=== PATIENT | male | born 1995 | race Caucasian/White ===

== ENCOUNTER 2017-11-17 12:09 | Inpatient (IN) | payer MEDICAID ==
[2017-11-17] MEDS: LACTATED RINGER S IV (14:09)
[2017-11-17 14:11] LABS: ADD MAN DIFF? NO
[2017-11-17 14:19] LABS: BASOPHILS % 0.5 % (0.0-2.0); EOSINOPHILS % 0.4 % (0.0-7.0); HEMOGLOBIN 13.6 g/dl (14.0-18.0); LYMPHOCYTES # 1.3 10^3/ul (0.8-2.9); LYMPHOCYTES % 16.8 % (15.0-51.0); MEAN CORPUSCULAR HEMOGLOBIN 32.6 pg (29.0-33.0); MEAN CORPUSCULAR HGB CONC 33.2 g/dl (32.0-37.0); MEAN CORPUSCULAR VOLUME 98.3 fl (82.0-101.0); MEAN PLATELET VOLUME 10.4 fl (7.4-10.4); MONOCYTE # 0.5 10^3/ul (0.3-0.9); MONOCYTES % 6.2 % (0.0-11.0); NEUTROPHIL # 5.7 10^3/ul (1.6-7.5); NEUTROPHILS % 75.7 % (39.0-77.0); PLATELET COUNT 117 10^3/UL (140-415); POSITIVE DIFF @See below; RED BLOOD COUNT 4.17 10^6/ul (4.70-6.10); RED CELL DISTRIBUTION WIDTH 12.8 % (11.5-14.5)
[2017-11-17 14:19] LABS: WHITE BLOOD COUNT 7.5 10^3/ul (4.8-10.8)
[2017-11-17 14:23] LABS: AADO2 Arterial 129.4 mmHg (7.0-24.0); Allen Test ACCEPTAB; Arterial Base Excess 3.8 mmol/L (-3.0-3); Arterial Blood Gas Oxygen Sat 97.6 mmHG (95.0-98.0); Arterial COHb 0.3 % (0.0-3.0); Arterial Fraction of Oxyhgb 97.2 % (93.0-99.0); Arterial HCO3 28.1 mmol/L (22.0-26.0); Arterial MetHb 0.1 % (0.0-1.5); Arterial pCO2 41.1 mmhg (35-45); MODE VENT - AC; Site Right Radial
[2017-11-17 14:32] LABS: INR 1.29; PROTIME 16.3 Sec (11.9-14.9); PT RATIO 1.3
[2017-11-17 14:33] LABS: PARTIAL THROMBOPLASTIN TIME 35.2 Sec (25.0-35.0)
[2017-11-17] MEDS: LORAZEPAM 2 MG INJ IM (15:29)
[2017-11-17 15:31] LABS: ALANINE AMINOTRANSFERASE 364 IU/L (13-69); ALBUMIN 3.9 g/dl (3.3-4.9); ALBUMIN/GLOBULIN RATIO 0.97; ALKALINE PHOSPHATASE 505 IU/L (42-121); ANION GAP 20 (8-16); ASPARTATE AMINO TRANSFERASE 240 IU/L (15-46); BILIRUBIN,INDIRECT 0.2 mg/dl (0-1.1); BILIRUBIN,TOTAL 0.2 mg/dl (0.2-1.3); BLOOD UREA NITROGEN 19 mg/dl (7-20); CARBON DIOXIDE 26 mmol/L (21-31); CHLORIDE 104 mmol/L (97-110); CREATININE 0.53 mg/dl (0.61-1.24); GLUCOSE 79 mg/dl (70-220); POTASSIUM 4.7 mmol/L (3.5-5.1); SODIUM 145 mmol/L (135-144); TOTAL PROTEIN 7.9 g/dl (6.1-8.1)
[2017-11-17 15:35] LABS: LACTIC ACID 9.1 mmol/L (0.5-2.0)
[2017-11-17 15:43] LABS: TROPONIN-I < 0.012 ng/ml (0.00-0.12)
[2017-11-17 16:17] LABS: URINE BLOOD (Dip) POC Negative (NEGATIVE); URINE GLUCOSE (Dip) POC Negative (NEGATIVE); URINE KETONES (Dip) POC Negative (NEGATIVE); URINE LEUKOCYTE EST (Dip) POC Negative (NEGATIVE); URINE NITRITE (Dip) POC Negative (NEGATIVE); URINE TOTAL PROTEIN POC Trace (NEGATIVE)
[2017-11-17] MEDS ORDERED: LEVETIRACETAM (100 MG/ML) 5ML CUP PEG (16:30)
[2017-11-17] MEDS ORDERED: VANCOMYCIN IV PER PHARMACY XX (16:30)
[2017-11-17] MEDS ORDERED: ALBUTEROL 0.083% (NEB) 2.5 MG/3 ML AMP NEB (16:30)
[2017-11-17] MEDS ORDERED: NON-FORMULARY/PATIENT OWN MED (Lacosamide (Vimpat) 100 MG) IV* (16:30)
[2017-11-17] MEDS ORDERED: ONDANSETRON (1 MG/1.25 ML PO SYG) PEG (16:30)
[2017-11-17] MEDS ORDERED: SOD CHLORIDE 0.9% 1,200 ML IV (16:30)
[2017-11-17] MEDS ORDERED: GENTAMICIN IV PER PHARMACY XX (16:30)
[2017-11-17] MEDS ORDERED: ACETAMINOPHEN 650MG/20.3ML CUP PO (16:30)
[2017-11-17 16:44] LABS: ADD UMIC YES; UR ASCORBIC ACID 40 mg/dL (NEGATIVE); UR BILIRUBIN (Dip) NEGATIVE (NEGATIVE); UR BLOOD (Dip) NEGATIVE (NEGATIVE); UR CLARITY CLEAR (CLEAR); UR COLOR YELLOW (YELLOW); UR GLUCOSE (Dip) 1+ mg/dL (NEGATIVE); UR KETONES (Dip) NEGATIVE (NEGATIVE); UR LEUKOCYTE ESTERASE (Dip) NEGATIVE Leu/ul (NEGATIVE); UR NITRITE (Dip) NEGATIVE (NEGATIVE); UR RBC 0 /HPF (0-5); UR SPECIFIC GRAVITY (Dip) 1.029 (1.003-1.030); UR TOTAL PROTEIN (Dip) 1+ mg/dl (NEGATIVE); UR UROBILINOGEN (Dip) 2+ mg/dL (NEGATIVE); UR WBC 0 /HPF (0-5)
[2017-11-17] MEDS: DEXTROSE 5%-0.45% NACL 1,000 ML IV (17:30)
[2017-11-17] MEDS: SOD CHLORIDE 0.9% 100 ML (17:40)
[2017-11-17] MEDS: MEROPENEM 500MG/50 ML (PMX) 50 ML IVPB (17:52)
[2017-11-17] MEDS: LIDOCAINE 1% (MPF) 5 ML VIAL SC (17:52)
[2017-11-17] MEDS: VANCOMYCIN 1 GM (PMX) 250 ML IVPB (18:50)
[2017-11-17 20:48] LABS: LACTIC ACID 1.8 mmol/L (0.5-2.0)
[2017-11-17] MEDS: PANTOPRAZOLE 40 MG INJ IV (21:57)
[2017-11-17] MEDS: LEVETIRACETAM 500 MG (PMX) 100 ML IVPB (22:00)
[2017-11-17] MEDS: AZTREONAM 2 GM in SOD CHLORIDE 0.9% 100 ML IVPB (22:15)
[2017-11-17 22:22] LABS: LACTIC ACID 1.2 mmol/L (0.5-2.0)
[2017-11-18 00:51] LABS: LACTIC ACID 1.4 mmol/L (0.5-2.0)
[2017-11-18] MEDS: SALINE 0.65% 45 ML NAS SPRAY NASAL ×2 (05:03→08:17)
[2017-11-18] MEDS: GENTAMICIN 130 MG in DEXTROSE 5% 100 ML IVPB (05:03)
[2017-11-18 05:09] LABS: ADD MAN DIFF? NO
[2017-11-18 05:10] LABS: WHITE BLOOD COUNT 7.8 10^3/ul (4.8-10.8)
[2017-11-18 05:10] LABS: BASOPHILS % 0.3 % (0.0-2.0); EOSINOPHILS # 0.1 10^3/ul (0.0-0.5); EOSINOPHILS % 0.8 % (0.0-7.0); HEMATOCRIT 35.3 % (42.0-52.0); HEMOGLOBIN 12.1 g/dl (14.0-18.0); LYMPHOCYTES # 1.4 10^3/ul (0.8-2.9); LYMPHOCYTES % 17.3 % (15.0-51.0); MEAN CORPUSCULAR HEMOGLOBIN 32.8 pg (29.0-33.0); MEAN CORPUSCULAR HGB CONC 34.3 g/dl (32.0-37.0); MEAN CORPUSCULAR VOLUME 95.7 fl (82.0-101.0); MONOCYTE # 0.6 10^3/ul (0.3-0.9); MONOCYTES % 7.1 % (0.0-11.0); NEUTROPHIL # 5.8 10^3/ul (1.6-7.5); NEUTROPHILS % 74.2 % (39.0-77.0); PLATELET COUNT 114 10^3/UL (140-415); POSITIVE DIFF @See below; RED BLOOD COUNT 3.69 10^6/ul (4.70-6.10); RED CELL DISTRIBUTION WIDTH 12.7 % (11.5-14.5)
[2017-11-18 05:36] LABS: LACTIC ACID 1.8 mmol/L (0.5-2.0)
[2017-11-18 05:52] LABS: ALANINE AMINOTRANSFERASE 367 IU/L (13-69); ALBUMIN/GLOBULIN RATIO 0.78; ALKALINE PHOSPHATASE 452 IU/L (42-121); ANION GAP 15 (8-16); ASPARTATE AMINO TRANSFERASE 275 IU/L (15-46); BILIRUBIN,INDIRECT 0.4 mg/dl (0-1.1); BILIRUBIN,TOTAL 0.4 mg/dl (0.2-1.3); BLOOD UREA NITROGEN 15 mg/dl (7-20); CALCIUM 8.3 mg/dl (8.4-10.2); CARBON DIOXIDE 26 mmol/L (21-31); CHLORIDE 103 mmol/L (97-110); CREATININE 0.51 mg/dl (0.61-1.24); GLUCOSE 178 mg/dl (70-220); MAGNESIUM 1.4 mg/dl (1.7-2.5); POTASSIUM 3.8 mmol/L (3.5-5.1); SODIUM 140 mmol/L (135-144); TOTAL PROTEIN 6.8 g/dl (6.1-8.1)
[2017-11-18] MEDS: PANTOPRAZOLE 40 MG INJ IV ×2 (06:26→16:51)
[2017-11-18] MEDS: AZTREONAM 2 GM in SOD CHLORIDE 0.9% 100 ML IVPB ×2 (06:56→14:37)
[2017-11-18] MEDS: MAGNESIUM SULFATE 2 GM/50 ML 50 ML IVPB (08:16)
[2017-11-18] MEDS: VANCOMYCIN 500MG/NS (PMX) 100 ML IVPB (08:17)
[2017-11-18] MEDS: LEVETIRACETAM 500 MG (PMX) 100 ML IVPB ×2 (08:17→20:38)
[2017-11-18] MEDS ORDERED: GENTAMICIN 70 MG in SOD CHLORIDE 0.9% 50 ML IVPB (09:00)
[2017-11-18] MEDS ORDERED: ENOXAPARIN 40 MG/0.4 ML SYG SC (09:00)
[2017-11-18] MEDS: DEXTROSE 5%-0.45% NACL 1,000 ML IV ×2 (10:10→20:55)
[2017-11-18] MEDS: GENTAMICIN 60 MG in SOD CHLORIDE 0.9% 50 ML IVPB (12:39)
[2017-11-18] MEDS ORDERED: [UNRECOGNIZED DRUG - REMARK] XX (13:00)
[2017-11-18] MEDS: CIPROFLOXACIN 400MG/D5W 200 ML IVPB (20:48)
[2017-11-18] MEDS: LORAZEPAM 2 MG INJ IV (22:10)
[2017-11-19 05:47] LABS: ADD MAN DIFF? NO
[2017-11-19] MEDS: PANTOPRAZOLE 40 MG INJ IV ×2 (05:48→18:35)
[2017-11-19 05:54] LABS: BASOPHILS % 0.6 % (0.0-2.0); EOSINOPHILS # 0.2 10^3/ul (0.0-0.5); EOSINOPHILS % 3.1 % (0.0-7.0); HEMATOCRIT 35.8 % (42.0-52.0); HEMOGLOBIN 12.3 g/dl (14.0-18.0); LYMPHOCYTES # 1.2 10^3/ul (0.8-2.9); LYMPHOCYTES % 18.2 % (15.0-51.0); MEAN CORPUSCULAR HEMOGLOBIN 32.4 pg (29.0-33.0); MEAN CORPUSCULAR HGB CONC 34.4 g/dl (32.0-37.0); MEAN CORPUSCULAR VOLUME 94.2 fl (82.0-101.0); MEAN PLATELET VOLUME 10.5 fl (7.4-10.4); MONOCYTE # 0.5 10^3/ul (0.3-0.9); MONOCYTES % 7.7 % (0.0-11.0); NEUTROPHIL # 4.6 10^3/ul (1.6-7.5); NEUTROPHILS % 70.1 % (39.0-77.0); PLATELET COUNT 127 10^3/UL (140-415); POSITIVE DIFF @See below; RED CELL DISTRIBUTION WIDTH 12.7 % (11.5-14.5)
[2017-11-19 05:54] LABS: WHITE BLOOD COUNT 6.5 10^3/ul (4.8-10.8)
[2017-11-19 06:10] LABS: INR 1.31; PROTIME 16.5 Sec (11.9-14.9); PT RATIO 1.3
[2017-11-19] MEDS ORDERED: ATROPINE 1 MG/10 ML SYRINGE IV (06:30)
[2017-11-19] MEDS ORDERED: OXYCODONE/ACETAMINOPHEN (5/325) TAB PO ×2 (06:30)
[2017-11-19] MEDS ORDERED: hydrALAzine 20 MG INJ IV (06:30)
[2017-11-19] MEDS ORDERED: MEPERIDINE 25 MG INJ IV (06:30)
[2017-11-19] MEDS ORDERED: DIPHENHYDRAMINE 50 MG INJ IV (06:30)
[2017-11-19] MEDS ORDERED: ONDANSETRON 4 MG INJ IV (06:30)
[2017-11-19] MEDS ORDERED: HYDROmorphONE (0.2 MG/ML) 10ML SYG IV ×3 (06:30)
[2017-11-19] MEDS ORDERED: MIDAZOLAM 1 MG/ML 2 ML INJ IV (06:30)
[2017-11-19] MEDS ORDERED: morphine (1 MG/ML) 10ML SYRINGE IV ×3 (06:30)
[2017-11-19] MEDS ORDERED: EPHEDrine SULFATE 50 MG/5 ML SYG IV (06:30)
[2017-11-19] MEDS ORDERED: FENTAnyl 50 MCG/ML VIAL IV ×2 (06:30)
[2017-11-19] MEDS ORDERED: LABETALOL HCL 20MG INJ IV (06:30)
[2017-11-19 06:51] LABS: ALANINE AMINOTRANSFERASE 325 IU/L (13-69); ALBUMIN 3.2 g/dl (3.3-4.9); ALBUMIN/GLOBULIN RATIO 0.84; ALKALINE PHOSPHATASE 483 IU/L (42-121); ANION GAP 12 (8-16); ASPARTATE AMINO TRANSFERASE 170 IU/L (15-46); BILIRUBIN,INDIRECT 0.2 mg/dl (0-1.1); BILIRUBIN,TOTAL 0.2 mg/dl (0.2-1.3); BLOOD UREA NITROGEN 10 mg/dl (7-20); CALCIUM 8.6 mg/dl (8.4-10.2); CARBON DIOXIDE 29 mmol/L (21-31); CHLORIDE 103 mmol/L (97-110); CREATININE 0.51 mg/dl (0.61-1.24); GLUCOSE 74 mg/dl (70-220); MAGNESIUM 1.6 mg/dl (1.7-2.5); POTASSIUM 3.7 mmol/L (3.5-5.1); SODIUM 140 mmol/L (135-144)
[2017-11-19] MEDS: CIPROFLOXACIN 400MG/D5W 200 ML IVPB (08:57)
[2017-11-19] MEDS: LEVETIRACETAM 500 MG (PMX) 100 ML IVPB ×2 (08:57→21:29)
[2017-11-19] MEDS: SALINE 0.65% 45 ML NAS SPRAY NASAL (08:58)
[2017-11-19] MEDS: SOD CHLORIDE 0.9% 500 ML IV (09:33)
[2017-11-19] MEDS: DEXTROSE 5%-0.45% NACL 1,000 ML IV ×2 (09:33→20:19)
[2017-11-19] MEDS: MAGNESIUM SULFATE 2 GM/50 ML 50 ML IVPB (12:20)
[2017-11-19] MEDS ORDERED: PROPOFOL 20 ML (12:51)
[2017-11-19] MEDS ORDERED: GLYCOPYRROLATE 0.4 MG INJ (12:51)
[2017-11-19] MEDS ORDERED: NEOSTIGMINE 3 MG/3 ML SYRINGE (12:51)
[2017-11-19] MEDS ORDERED: FENTAnyl 50 MCG/ML VIAL (12:51)
[2017-11-19] MEDS ORDERED: ROCURONIUM 50 MG INJ (12:51)
[2017-11-19] MEDS ORDERED: LIDOCAINE 2% (SDV) 5 ML INJ (12:51)
[2017-11-19] MEDS ORDERED: MIDAZOLAM 1 MG/ML 2 ML INJ (12:51)
[2017-11-19] MEDS: HEPARIN 1000 UNITS/ML 10 ML INJ (14:18)
[2017-11-19] MEDS: LIDOCAINE 1% (MPF) 30 ML INJ (14:18)
[2017-11-19] MEDS ORDERED: HEPARIN 1000 UNITS/ML 10 ML INJ (14:40)
[2017-11-19] MEDS: LINEZOLID 600 MG/D5W (PMX) 300 ML IVPB ×2 (15:57→21:29)
[2017-11-19] MEDS: LORAZEPAM 2 MG INJ IV (23:07)
[2017-11-20] MEDS: DEXTROSE 5%-0.45% NACL 1,000 ML IV ×2 (02:10→13:07)
[2017-11-20 05:52] LABS: ADD MAN DIFF? NO
[2017-11-20 06:02] LABS: BASOPHIL # 0.1 10^3/ul (0.0-0.1); BASOPHILS % 0.7 % (0.0-2.0); EOSINOPHILS # 0.3 10^3/ul (0.0-0.5); HEMATOCRIT 35.5 % (42.0-52.0); HEMOGLOBIN 12.1 g/dl (14.0-18.0); LYMPHOCYTES # 1.6 10^3/ul (0.8-2.9); LYMPHOCYTES % 23.9 % (15.0-51.0); MEAN CORPUSCULAR HEMOGLOBIN 32.5 pg (29.0-33.0); MEAN CORPUSCULAR HGB CONC 34.1 g/dl (32.0-37.0); MEAN CORPUSCULAR VOLUME 95.4 fl (82.0-101.0); MEAN PLATELET VOLUME 10.2 fl (7.4-10.4); MONOCYTE # 0.5 10^3/ul (0.3-0.9); MONOCYTES % 6.8 % (0.0-11.0); NEUTROPHIL # 4.4 10^3/ul (1.6-7.5); NEUTROPHILS % 64.5 % (39.0-77.0); PLATELET COUNT 136 10^3/UL (140-415); POSITIVE DIFF @See below; RED BLOOD COUNT 3.72 10^6/ul (4.70-6.10); RED CELL DISTRIBUTION WIDTH 12.6 % (11.5-14.5)
[2017-11-20 06:02] LABS: WHITE BLOOD COUNT 6.8 10^3/ul (4.8-10.8)
[2017-11-20] MEDS: PANTOPRAZOLE 40 MG INJ IV ×2 (06:07→18:14)
[2017-11-20 06:35] LABS: ALANINE AMINOTRANSFERASE 235 IU/L (13-69); ALBUMIN 2.9 g/dl (3.3-4.9); ALBUMIN/GLOBULIN RATIO 0.82; ALKALINE PHOSPHATASE 410 IU/L (42-121); ANION GAP 12 (8-16); ASPARTATE AMINO TRANSFERASE 114 IU/L (15-46); BILIRUBIN,INDIRECT 0.1 mg/dl (0-1.1); BILIRUBIN,TOTAL 0.1 mg/dl (0.2-1.3); BLOOD UREA NITROGEN 5 mg/dl (7-20); CALCIUM 8.1 mg/dl (8.4-10.2); CARBON DIOXIDE 27 mmol/L (21-31); CHLORIDE 105 mmol/L (97-110); CREATININE 0.53 mg/dl (0.61-1.24); GLUCOSE 83 mg/dl (70-220); MAGNESIUM 1.8 mg/dl (1.7-2.5); POTASSIUM 3.9 mmol/L (3.5-5.1); SODIUM 140 mmol/L (135-144); TOTAL PROTEIN 6.4 g/dl (6.1-8.1)
[2017-11-20] MEDS: LEVETIRACETAM 500 MG (PMX) 100 ML IVPB ×2 (10:10→21:02)
[2017-11-20] MEDS: LINEZOLID 600 MG/D5W (PMX) 300 ML IVPB ×2 (10:11→21:02)
[2017-11-20] MEDS: SALINE 0.65% 45 ML NAS SPRAY NASAL (10:11)
[2017-11-20] MEDS: TPN 1,000 ML IV ×2 (11:37→17:30)
[2017-11-20] MEDS: ACCU-CHEK XX ×3 (15:20→21:11)
[2017-11-20 15:26] LABS: ALANINE AMINOTRANSFERASE 229 IU/L (13-69); ALBUMIN/GLOBULIN RATIO 0.83; ALKALINE PHOSPHATASE 422 IU/L (42-121); ANION GAP 10 (8-16); ASPARTATE AMINO TRANSFERASE 99 IU/L (15-46); BILIRUBIN,INDIRECT 0.1 mg/dl (0-1.1); BILIRUBIN,TOTAL 0.1 mg/dl (0.2-1.3); BLOOD UREA NITROGEN 4 mg/dl (7-20); CALCIUM 8.2 mg/dl (8.4-10.2); CARBON DIOXIDE 28 mmol/L (21-31); CHLORIDE 104 mmol/L (97-110); CREATININE 0.54 mg/dl (0.61-1.24); GLUCOSE 77 mg/dl (70-220); MAGNESIUM 1.6 mg/dl (1.7-2.5); PHOSPHORUS 3.2 mg/dl (2.5-4.9); POTASSIUM 3.5 mmol/L (3.5-5.1); SODIUM 138 mmol/L (135-144); TOTAL PROTEIN 6.6 g/dl (6.1-8.1); TRIGLYCERIDES 65 mg/dl (0-149)
[2017-11-20 15:32] LABS: PREALBUMIN 11.2 mg/dl (17.6-36.0)
[2017-11-20] MEDS: FAT EMULSION 20% 250 ML IV (16:00)
[2017-11-20] MEDS: TOBRAMYCIN/0.25NS 300 MG/5 ML INHAL NEB (20:00)
[2017-11-21] MEDS: ACCU-CHEK XX ×4 (01:00→12:12)
[2017-11-21 06:03] LABS: ALANINE AMINOTRANSFERASE 203 IU/L (13-69); ALBUMIN 2.9 g/dl (3.3-4.9); ALBUMIN/GLOBULIN RATIO 0.78; ALKALINE PHOSPHATASE 359 IU/L (42-121); ANION GAP 13 (8-16); ASPARTATE AMINO TRANSFERASE 90 IU/L (15-46); BLOOD UREA NITROGEN 11 mg/dl (7-20); CALCIUM 8.5 mg/dl (8.4-10.2); CARBON DIOXIDE 33 mmol/L (21-31); CHLORIDE 104 mmol/L (97-110); CREATININE 0.57 mg/dl (0.61-1.24); GLUCOSE 90 mg/dl (70-220); MAGNESIUM 1.9 mg/dl (1.7-2.5); POTASSIUM 4.2 mmol/L (3.5-5.1); SODIUM 146 mmol/L (135-144); TOTAL PROTEIN 6.6 g/dl (6.1-8.1)
[2017-11-21 06:25] LABS: ANION GAP 13 (8-16); BLOOD UREA NITROGEN 11 mg/dl (7-20); CALCIUM 8.5 mg/dl (8.4-10.2); CARBON DIOXIDE 31 mmol/L (21-31); CHLORIDE 105 mmol/L (97-110); CREATININE 0.56 mg/dl (0.61-1.24); GLUCOSE 88 mg/dl (70-220); PHOSPHORUS 4.1 mg/dl (2.5-4.9); POTASSIUM 4.3 mmol/L (3.5-5.1); SODIUM 145 mmol/L (135-144)
[2017-11-21] MEDS: PANTOPRAZOLE 40 MG INJ IV (06:58)
[2017-11-21] MEDS: TPN 1,000 ML IV (08:42)
[2017-11-21] MEDS: SALINE 0.65% 45 ML NAS SPRAY NASAL (08:48)
[2017-11-21] MEDS: LINEZOLID 600 MG/D5W (PMX) 300 ML IVPB (08:49)
[2017-11-21] MEDS: LEVETIRACETAM 500 MG (PMX) 100 ML IVPB ×2 (09:41→12:13)
[2017-11-21] MEDS ORDERED: LORAZEPAM 2 MG INJ IV (10:00)
[2017-11-21] MEDS ORDERED: LEVETIRACETAM 1000 MG (PMX) 100 ML IVPB (21:00)
== END 2017-11-21 17:10 | DRG 870 ==
LOC: E/R 12:09 → ICU 16:52
PROC: 5A1955Z Respiratory Ventilation, Greater than 96 Consecutive Hours (ICD-10-PCS; principal; 2017-11-19 13:35)
PROC: 4A033R1 Measurement of Arterial Saturation, Peripheral, Percutaneous Approach (ICD-10-PCS; 2017-11-19 13:35)
PROC: 02PAX3Z Removal of Infusion Device from Heart, External Approach (ICD-10-PCS; 2017-11-19 13:35)
PROC: 02H633Z Insertion of Infusion Device into Right Atrium, Percutaneous Approach (ICD-10-PCS; 2017-11-19 13:35)
PROC: B214YZZ Fluoroscopy of Right Heart using Other Contrast (ICD-10-PCS; 2017-11-19 13:35)
PROC: B54NZZA Ultrasonography of Left Upper Extremity Veins, Guidance (ICD-10-PCS; 2017-11-19 13:35)
DX: A41.89 Other specified sepsis (principal); R65.21 Severe sepsis with septic shock; Z99.11 Dependence on respirator [ventilator] status; E43 Unspecified severe protein-calorie malnutrition; Q33.6 Congenital hypoplasia and dysplasia of lung; G93.40 Encephalopathy, unspecified; J96.10 Chronic respiratory failure, unspecified whether with hypoxia or hypercapnia; Q79.2 Exomphalos; E87.2 Acidosis; T82.514A Breakdown (mechanical) of infusion catheter, initial encounter; Z68.1 Body mass index [BMI] 19.9 or less, adult; N39.0 Urinary tract infection, site not specified; D69.6 Thrombocytopenia, unspecified; M41.9 Scoliosis, unspecified; G40.909 Epilepsy, unspecified, not intractable, without status epilepticus; D64.9 Anemia, unspecified; R62.50 Unspecified lack of expected normal physiological development in childhood; Z16.21 Resistance to vancomycin; G80.9 Cerebral palsy, unspecified; Z88.0 Allergy status to penicillin; Z93.0 Tracheostomy status
CPT/HCPCS: 36415; 36556; 36569; 36600; 71045; 76937; 80048; 80053; 81001; 81003; 82803; 82962; 83605; 83735; 84100; 84134; 84478; 84484; 85025; 85610; 85730; 87040; 87070; 87081; 87086; 88300; 93005; 94002; 94003; 96372; 96374; 96375; 99291-25